=== PATIENT | female | born 1985 | race African-American/Black ===

== ENCOUNTER 2019-08-29 15:42 | Emergency (ER) | payer OTHER ==
[~2019-08-29] VITALS: Ht 154.9 cm; Wt 54.4 kg
[~2019-08-29 15:42] MED LIST: AMLO5TAB7; INSU100S45; LANTUS; LISI1POW; PANT20EC; PRAV20TA46; SIMV10TA1; [UNRECOGNIZED DRUG - CODE]; [UNRECOGNIZED DRUG - CODE]
--- NOTE | 2019-08-29 15:45 | NUR ---
34 y/o female presenting with c/c shaking while sleeping, witnessed by mother. per pt "when I woke up the paramedics were at scene already". Per pt did no LOC and blood sugar on field was 52. Pt is a dialysis patient with a graft on the LLE, tunnel catheter on the Right upper chest, and RUE graft but not currently using it. Per pt allergies cipro, bactrim, finogen, compuzine, ibuprofen and metropolol. medical hx of htn, dm, kidney failure. medical rx: amlodopine, reglan, plavix. Denies n/v/d. pt has dialysis m/w/f. side rail x1.
[2019-08-29 15:46] VITALS: BP 146/102
--- NOTE | 2019-08-29 16:11 | NUR ---
Dr. Gorman is evaluating the patient at bedside.
[2019-08-29 16:42] VITALS: BP 146/102
--- NOTE | 2019-08-29 16:42 | NUR ---
Patient discharged with v/s stable. Written and verbal after care instructions given and explained. Patient verbalized understanding. Ambulatory with steady gait. All questions addressed prior to discharge. Advised to follow up with PMD. BLOOD SUGAR CHECKED 1642 HOURS , [id number]
== END 2019-08-29 16:42 | disposition home or self-care (01) ==
LOC: MED 15:42
DX: E11.649 Type 2 diabetes mellitus with hypoglycemia without coma (principal); I10 Essential (primary) hypertension; Z79.4 Long term (current) use of insulin; Z90.49 Acquired absence of other specified parts of digestive tract; Z98.890 Other specified postprocedural states; Z79.899 Other long term (current) drug therapy; Z88.1 Allergy status to other antibiotic agents; Z88.2 Allergy status to sulfonamides; Z88.8 Allergy status to other drugs, medicaments and biological substances
CPT/HCPCS: 82948; 99283

== ENCOUNTER 2021-09-06 18:00 | Emergency (ER) | payer OTHER ==
[~2021-09-06] VITALS: Ht 154.9 cm; Wt 74.8 kg
[2021-09-06 18:06] VITALS: BP 150/66
--- NOTE | 2021-09-06 18:09 | NUR ---
BIBA TO BED
--- NOTE | 2021-09-06 18:18 | NUR ---
pt requesting to leave [facility], offered juice and food pt refused. pt refused to sign [facility] paperwork and walked out of er. dr buchanan made aware
== END 2021-09-06 18:18 | disposition left against medical advice (07) ==
LOC: MED 18:00
DX: E16.2 Hypoglycemia, unspecified (principal); Z53.21 Procedure and treatment not carried out due to patient leaving prior to being seen by health care provider